=== PATIENT | female | born 1985 | race Caucasian/White ===

== ENCOUNTER 2017-08-03 17:27 | Emergency (ER) | payer OTHER ==
[2017-08-03] MEDS ORDERED: methylPREDNISolone SOD SUCCI 125 MG/2 ML VIAL IV ONE (17:54)
[2017-08-03] MEDS ORDERED: FAMOTIDINE 20 MG/2 ML VIAL IV STA (17:54)
--- NOTE | 2017-08-03 18:16 | XR ---
EXAMINATION TYPE: XR chest 2V DATE OF EXAM: 08/03/2017 COMPARISON: NONE HISTORY: Chest pain after bee sting injury today. TECHNIQUE: Frontal and lateral views of the chest are obtained. FINDINGS: Lateral view is slightly suboptimal secondary to patient's large body habitus. Somewhat low lung volumes noted. There is no focal air space opacity, pleural effusion, or pneumothorax seen. T he cardiac silhouette size is within normal limits. The osseous structures are intact. IMPRESSION: No acute cardiopulmonary process.
--- NOTE | 2017-08-03 18:36 | ED ---
Allergic Reaction HPI - General Chief complaint: Skin/Abscess/Foreign Body Stated complaint: Bee Sting Time Seen by Provider: 08/03/17 17:29 Source: patient, EMS Mode of arrival: EMS Limitations: no limitations - History of Present Illness Initial Comments: Pt presents following an ALLERGIC reaction to bee sting. Patient states earlier this morning she was driving with arm out window, felt a bee sting her on left anterior forearm. States she initially had some localized swelling and itching and redness in the area. States she's had these reactions to bees since she was a child. States later in the afternoon she began feeling short of breath, felt like she could not swallow, had itching and pain in both arms. States she felt very anxious. She called EMS, who brought patient to the ER, was given Benadryl prior to arrival, patient states her symptoms are improving since receiving Benadryl. Patient complains only of localized swelling redness and itching of the bee sting site at this time. Currently denies shortness of breath, throat swelling, voice changes, trouble swallowing, shortness of breath or pain in the chest. Patient states she takes no medications daily, has no past medical history. Patient denies history of coronary artery disease, any heart disease, hypertension, high cholesterol, diabetes. Patient does admit to smoking less than one pack per day. He denies ALLERGIES to any medications, foods, environmental ALLERGIES other than localized reactions to bee stings. MD Complaint: allergic reaction - Related Data Previous Rx's Medication Instructions Recorded Amoxic-Pot Clav 875-125Mg 1 tab PO Q12HR #20 tablet 07/26/17 [Augmentin 875-125] Ranitidine HCl [Zantac] 150 mg PO BID #8 tab 08/03/17 diphenhydrAMINE [Benadryl] 50 mg PO TID PRN #10 capsule 08/03/17 predniSONE 50 mg PO DAILY #4 tablet 08/03/17 Allergies Allergy/AdvReac Type Severity Reaction Status Date / Time bee venom protein (honey bee) Allergy Rash/Swelli Verified 08/03/17 17:52 ng Review of Systems ROS Statement: Those systems with pertinent positive or pertinent negative responses have been documented in the HPI. ROS Other: All systems not noted in ROS Statement are negative. Constitutional: Denies: fever, chills, weakness Eyes: Denies: eye pain, eye discharge, vision change ENT: Denies: ear pain, throat pain, congestion Respiratory: Denies: cough, dyspnea, wheezes, stridor Cardiovascular: Denies: chest pain, palpitations, syncope Endocrine: Denies: fatigue Gastrointestinal: Denies: abdominal pain, nausea, vomiting, diarrhea, constipation Genitourinary: Denies: urgency, dysuria Musculoskeletal: Denies: back pain Skin: Reports: rash, lesions, change in color, pruritus Neurological: Denies: headache, weakness, numbness, confusion Psychiatric: Reports: anxiety Past Medical History Past Medical History: Diabetes Mellitus Additional Past Medical History / Comment(s): Obstetric history: She has had 2 previous vaginal deliveries and 1 spontaneous . She has had care with me since 10 weeks. O+, abs neg, Rub Imm, RPR NR, Hep B neg ,HIV NR, toxo neg. She does have gestational diabetes A1-controlled well with diet. GBS neg. History of Any Multi-Drug Resistant Organisms: None Reported Past Surgical History: Cholecystectomy Additional Past Surgical History / Comment(s): cyst removed off back, D&C Past Anesthesia/Blood Transfusion Reactions: No Reported Reaction Past Psychological History: No Psychological Hx Reported Past Alcohol Use History: None Reported - Past Family History Father Family Medical History: Hypertension General Exam - General Exam Comments Initial Comments: Pt sitting up on bed. No acute distress. Conversing normally. Calm, pleasant , smiling, making jokes. Well-appearing. Limitations: no limitations General appearance: alert, in no apparent distress Head exam: Present: atraumatic, normocephalic Eye exam: Present: normal appearance, PERRL, EOMI. Absent: conjunctival injection Pupils: Present: normal accommodation ENT exam: Present: normal exam, normal oropharynx, mucous membranes moist, normal external ear exam, other (Pharynx appears clear, no edema, no swelling, no redness.) Neck exam: Present: normal inspection, full ROM, other (No stridor). Absent: tenderness Respiratory exam: Present: normal lung sounds bilaterally. Absent: respiratory distress, wheezes, rales, rhonchi, stridor, accessory muscle use, decreased breath sounds, prolonged expiratory Cardiovascular Exam: Present: regular rate, normal rhythm GI/Abdominal exam: Present: soft. Absent: distended, tenderness, guarding, rebound Extremities exam: Present: full ROM, normal capillary refill. Absent: tenderness, joint swelling Neurological exam: Present: alert, oriented X3. Absent: altered Psychiatric exam: Present: normal affect, normal mood Skin exam: Present: warm, dry, intact, erythema, urticaria, other (Has approximately 3 cm x 6 cm erythematous wheal on left anterior forearm.). Absent : vesicles, pallor Course Vital Signs 08/03/17 17:28 Temperature 99.1 F Pulse Rate 112 H Respiratory 16 Rate Blood Pressure 153/84 O2 Sat by Pulse 99 Oximetry Medical Decision Making - Medical Decision Making Patient given Benadryl by EMS prior to arrival with improvement of symptoms. Will give Pepcid, Solu-Medrol. EKG normal sinus rhythm, heart rate 81, no ST or T-wave changes. Chest x-ray negative for acute process. Patient monitored in the ER, remained asymptomatic other than mild edema and redness localized to sting site. Patient states shortness of breath and other associated symptoms have resolved. Patient feels comfortable going home at this time. Patient given a prescription for Zantac, prednisone, Benadryl. Patient to follow up with primary care physician. Return to ED if there are worsening symptoms. Patient understands and agrees. Disposition Clinical Impression: Allergic reaction to bee sting Disposition: HOME SELF-CARE Condition: Good Instructions: General Allergic Reaction (ED) Prescriptions: diphenhydrAMINE [Benadryl] 50 mg PO TID PRN #10 capsule PRN Reason: Allergic Reaction predniSONE 50 mg PO DAILY #4 tablet Ranitidine HCl [Zantac] 150 mg PO BID #8 tab Referrals: Juan Pablo Braxton DO [Primary Care Provider] - 1-2 days
[2017-08-03 18:58] VITALS: BP 139/78; PULSE 98; RESP 13; TEMP 98.5
== END 2017-08-03 19:02 | disposition home or self-care (01) ==
LOC: EC 17:27
DX: T63.441A Toxic effect of venom of bees, accidental (unintentional), initial encounter (principal); R06.02 Shortness of breath; F17.200 Nicotine dependence, unspecified, uncomplicated; Z91.030 Bee allergy status
CPT/HCPCS: 99284 ×2; 96374 ×2; 96375 ×2; 93005; 71020; J2930

== ENCOUNTER 2020-07-03 14:01 | Emergency (ER) | payer OTHER ==
[2020-07-03 14:15] VITALS: RESP 18
[2020-07-03] MEDS ORDERED: SODIUM CHLORIDE 0.9% 1,000 ML IV STA (14:20)
[2020-07-03] MEDS ORDERED: SODIUM CHLORIDE 0.9% 500 ML 500 ML IV STA (14:20)
[2020-07-03] MEDS ORDERED: MORPHINE SULFATE 2 MG/ML SYRINGE IVP STA (14:50)
[2020-07-03 14:53] LABS: Basophils # (A) 0.1 k/uL (0-0.2); Basophils % (A) 1 %; Eosinophils # (A) 0.2 k/uL (0-0.7); Eosinophils % (A) 3 %; HCT 40.9 % (34.0-46.0); HGB 13.9 gm/dL (11.4-16.0); Lymphocytes # (A) 1.7 k/uL (1.0-4.8); Lymphocytes % (A) 21 %; MCH 28.4 pg (25.0-35.0); MCHC 33.9 g/dL (31.0-37.0); MCV 83.8 fL (80.0-100.0); Mean Platelet Volume 7.1; Monocytes # (A) 0.3 k/uL (0-1.0); Monocytes % (A) 3 %; Neutrophils # (A) 5.7 k/uL (1.3-7.7); Neutrophils % (A) 70 %; Platelet Count 222 k/uL (150-450); RBC 4.89 m/uL (3.80-5.40); RDW 13.1 % (11.5-15.5); WBC 8.1 k/uL (3.8-10.6)
[2020-07-03 14:54] LABS: Appearance,Urine Clear (Clear); Bilirubin,Urine Negative (Negative); Blood,Urine Trace (Negative); Color,Urine Yellow; Glucose,Urine (UA) Negative (Negative); Ketones,Urine Negative (Negative); Leukocyte Esterase,Urine Negative (Negative); Mucus,Urine Rare /hpf; Nitrite,Urine Negative (Negative); PH, Urine 5.5 (5.0-8.0); Protein,Urine Negative (Negative); RBC,Urine 1 /hpf (0-5); Specific Gravity,Urine 1.009 (1.001-1.035); Squamous Epithelial Cell,Urine 1 /hpf (0-4); Urobilinogen,Urine <2.0 mg/dL (<2.0); WBC,Urine 1 /hpf (0-5)
[2020-07-03] MEDS ORDERED: ONDANSETRON 4 MG/2 ML VIAL IVP STA (15:00)
[2020-07-03 15:02] LABS: ALT 43 U/L (4-34); AST 32 U/L (14-36); African American GFR (CKD) >90 (>60 ml/min/1.73 sqM); Albumin 4.5 g/dL (3.5-5.0); Alkaline Phosphatase 91 U/L (38-126); Anion Gap 7 mmol/L; Blood Urea Nitrogen 9 mg/dL (7-17); Calcium 9.3 mg/dL (8.4-10.2); Carbon Dioxide 25 mmol/L (22-30); Chloride 105 mmol/L (98-107); Glucose 155 mg/dL (74-99); Non-African American GFR(CKD) >90 (>60 ml/min/1.73 sqM); Potassium 3.7 mmol/L (3.5-5.1); Sodium 137 mmol/L (137-145); Total Bilirubin 0.4 mg/dL (0.2-1.3)
--- NOTE | 2020-07-03 15:44 | US ---
EXAMINATION TYPE: US abdomen limited DATE OF EXAM: 07/03/2020 COMPARISON: NONE CLINICAL HISTORY: epigastric pain. EXAM MEASUREMENTS: Liver Length: 15.7 cm Gallbladder Wall: Surgically absent CBD: 0.5 cm Right Kidney: 11.9 x 4.7 x 4.5 cm Pancreas: wnl Liver: There is no evident mass Gallbladder: Surgically absent Evidence for sonographic Todd's sign: No CBD: wnl Right Kidney: prominent renal pelvis IMPRESSION: Postcholecystectomy change, suspect extrarenal pelvis, limited exam.
[2020-07-03 15:49] VITALS: BP 143/93; PULSE 87
--- NOTE | 2020-07-03 15:58 | ED ---
Nausea/Vomiting/Diarrhea HPI - General Chief complaint: Nausea/Vomiting/Diarrhea Stated complaint: Abd Pain, Nausea Time Seen by Provider: 07/03/20 14:20 Source: patient Mode of arrival: wheelchair Limitations: no limitations - History of Present Illness Initial comments: 34-year-old male presenting today for chief complaint of 10 days of diarrhea. Patient denies any recent trauma or fevers to stitches had 10 days of diarrhea she denies bloody or black stools. Patient denies any presyncope. She states she has some nausea at times and cramping of the abdomen including currently in the epigastric region she was told she had any pain to come to the hospital for further evaluation patient has outpatient orders for basic studies, amylase lipase and an ultrasound of the upper abdomen. Patient denies vomiting, chest pain or SOB. patient has no additional complaints. Upon arrival patient appears well there is no signs of acute distress. - Related Data Previous Rx's Medication Instructions Recorded Amoxic-Pot Clav 875-125Mg 1 tab PO Q12HR #20 tablet 07/26/17 [Augmentin 875-125] Ranitidine HCl [Zantac] 150 mg PO BID #8 tab 08/03/17 diphenhydrAMINE [Benadryl] 50 mg PO TID PRN #10 capsule 08/03/17 predniSONE 50 mg PO DAILY #4 tablet 08/03/17 Allergies Allergy/AdvReac Type Severity Reaction Status Date / Time bee venom protein (honey bee) Allergy Rash/Swelli Verified 07/03/20 14:15 ng Review of Systems ROS Statement: Those systems with pertinent positive or pertinent negative responses have been documented in the HPI. ROS Other: All systems not noted in ROS Statement are negative. Past Medical History Past Medical History: Diabetes Mellitus Additional Past Medical History / Comment(s): Obstetric history: She has had 2 previous vaginal deliveries and 1 spontaneous . She has had care with hi since 10 weeks. O+, abs neg, Rub Imm, RPR NR, Hep B neg ,HIV NR, toxo neg. She does have gestational diabetes A1-controlled well with diet. GBS neg. History of Any Multi-Drug Resistant Organisms: None Reported Past Surgical History: Cholecystectomy Additional Past Surgical History / Comment(s): cyst removed off back, D&C Past Anesthesia/Blood Transfusion Reactions: No Reported Reaction Past Psychological History: No Psychological Hx Reported Past Alcohol Use History: None Reported - Past Family History Father Family Medical History: Hypertension General Exam - General Exam Comments Initial Comments: General: The patient is awake and alert, in no distress, and does not appear acutely ill. Eye: +3 mmm pupils are equal, round and reactive to light, extra-ocular movements are intact. No nystagmus. There is normal conjunctiva bilaterally. No signs of icterus. Ears, nose, mouth and throat: There are moist mucous membranes and no oral lesions. Neck: The neck is supple, there is no tenderness or JVD. Cardiovascular: There is a regular rate and rhythm. No murmur, rub or gallop is appreciated. Respiratory: Lungs are clear to auscultation, respirations are non-labored, b reath sounds are equal. No wheezes, stridor, rales, or rhonchi. Gastrointestinal: Soft, non-distended, I can deeply palpation epigastric pain reproducing what appears to be mild abdominal pain, abdomen is without masses or organomegaly noted. There is no rebound or guarding present. Musculoskeletal: Normal ROM, no tenderness. Strength 5/5. Sensation intact. Radial pulses equal bilaterally 2+. Neurological: A&O x 3. CN II-XII intact grossly, There are no obvious motor or sensory deficits. Coordination appears grossly intact. Speech is normal. Skin: Skin is warm and dry and no rashes or lesions are noted. Psychiatric: Cooperative, appropriate mood & affect, normal judgment. Limitations: no limitations Course Vital Signs 07/03/20 07/03/20 07/03/20 14:11 15:48 16:15 Temperature 98.1 F 97.8 F Pulse Rate 104 H 87 Respiratory 18 18 Rate Blood Pressure 135/92 143/93 O2 Sat by Pulse 98 99 Oximetry Medical Decision Making - Medical Decision Making US (-). Previous júnior. Patient pain appears mild. Labs stable. Cannot provide stool sample here, wants to do it outpatient has existing orders from PCP. P atient pain controlled, she was givne IVF appears well nontoxic, discharged wt PCP f/u. patient agreeable to care plan and discharge. - Lab Data Result diagrams: 07/03/20 14:36 07/03/20 14:36 Lab Results 07/03/20 07/03/20 07/03/20 Range/Units 14:36 14:36 14:36 WBC 8.1 (3.8-10.6) k/uL RBC 4.89 (3.80-5.40) m/uL Hgb 13.9 (11.4-16.0) gm/dL Hct 40.9 (34.0-46.0) % MCV 83.8 (80.0-100.0) fL MCH 28.4 (25.0-35.0) pg MCHC 33.9 (31.0-37.0) g/dL RDW 13.1 (11.5-15.5) % Plt Count 222 (150-450) k/uL Neutrophils % 70 % Lymphocytes % 21 % Monocytes % 3 % Eosinophils % 3 % Basophils % 1 % Neutrophils # 5.7 (1.3-7.7) k/uL Lymphocytes # 1.7 (1.0-4.8) k/uL Monocytes # 0.3 (0-1.0) k/uL Eosinophils # 0.2 (0-0.7) k/uL Basophils # 0.1 (0-0.2) k/uL Sodium 137 (137-145) mmol/L Potassium 3.7 (3.5-5.1) mmol/L Chloride 105 (98-107) mmol/L Carbon Dioxide 25 (22-30) mmol/L Anion Gap 7 mmol/L BUN 9 (7-17) mg/dL Creatinine 0.60 (0.52-1.04) mg/dL Est GFR (CKD-EPI)AfAm >90 (>60 ml/min/1.73 sqM) Est GFR (CKD-EPI)NonAf >90 (>60 ml/min/1.73 sqM) Glucose 155 H (74-99) mg/dL Calcium 9.3 (8.4-10.2) mg/dL Total Bilirubin 0.4 (0.2-1.3) mg/dL AST 32 (14-36) U/L ALT 43 H (4-34) U/L Alkaline Phosphatase 91 (38-126) U/L Total Protein 7.0 (6.3-8.2) g/dL Albumin 4.5 (3.5-5.0) g/dL Lipase 81 (23-300) U/L Urine Color Yellow Urine Appearance Clear (Clear) Urine pH 5.5 (5.0-8.0) Ur Specific Davison 1.009 (1.001-1.035) Urine Protein Negative (Negative) Urine Glucose (UA) Negative (Negative) Urine Ketones Negative (Negative) Urine Blood Trace H (Negative) Urine Nitrite Negative (Negative) Urine Bilirubin Negative (Negative) Urine Urobilinogen <2.0 (<2.0) mg/dL Ur Leukocyte Esterase Negative (Negative) Urine RBC 1 (0-5) /hpf Urine WBC 1 (0-5) /hpf Ur Squamous Epith Cells 1 (0-4) /hpf Urine Mucus Rare H (None) /hpf Disposition Clinical Impression: Diarrhea, Abdominal pain Disposition: HOME SELF-CARE Condition: Good Instructions (If sedation given, give patient instructions): Acute Diarrhea (ED), Abdominal Pain (ED) Additional Instructions: Please use medication as discussed. Please follow-up with family doctor in the next 2 days. Please return to emergency room if the symptoms increase or worsen or for any other concerns. Is patient prescribed a controlled substance at d/c from ED?: No Referrals: Candis Moser DO [Primary Care Provider] - 1-2 days Time of Disposition: 15:57
[2020-07-03 16:16] VITALS: TEMP 97.8
== END 2020-07-03 16:16 | disposition home or self-care (01) ==
LOC: EC 14:01
DX: R19.7 Diarrhea, unspecified (principal); R10.13 Epigastric pain; Z91.030 Bee allergy status; Z90.49 Acquired absence of other specified parts of digestive tract
CPT/HCPCS: 36415; 80053; 83690; 85025; 81001; 76705; 96374; 96375; 96361; 99284; J2405; J2270

== ENCOUNTER 2021-04-07 07:29 | Observation (INO) | payer OTHER ==
[2021-04-07] MEDS ORDERED: ONDANSETRON 4 MG/2 ML VIAL IVP STA (07:48)
[2021-04-07] MEDS ORDERED: MORPHINE SULFATE 4 MG/ML SYRINGE IV STA (07:48)
[2021-04-07] MEDS ORDERED: SODIUM CHLORIDE 0.9% 1,000 ML IV STA (07:48)
--- NOTE | 2021-04-07 07:50 | ED ---
General Adult HPI - General Chief complaint: Abdominal Pain Stated complaint: abd pain, nausea Time Seen by Provider: 04/07/21 07:39 Source: patient Mode of arrival: wheelchair Limitations: no limitations - History of Present Illness Initial comments: Dictation was produced using [employer] dictation software. please excuse any grammatical, word or spelling errors. Chief Complaint: 35-year-old female presents to the emergency department for lower abdominal pain. History of Present Illness: 35-year-old female she will go this morning with severe lower abdominal pain. Patient has history of cholecystectomy. She says appendix. She does complain of constitutional symptoms but denies any fevers patient states she just feels cold. Patient never had symptoms like this in the past. She has history of bilateral tubal ligation. No other abdominal surgeries. She does complain of nausea vomiting. Denies any diarrhea. The ROS documented in this emergency department record has been reviewed and confirmed by me. Those systems with pertinent positive or negative responses have been documented in the HPI. All other systems are other negative and/or noncontributory. PHYSICAL EXAM: General Impression: Alert and oriented x3, severe distress secondary to pain HEENT: Normocephalic atraumatic, extra-ocular movements intact, pupils equal and reactive to light bilaterally, mucous membranes moist. Cardiovascular: Heart regular rate and rhythm Chest: Able to complete full sentences, no retractions, no tachypnea Abdomen: abdomen soft, tenderness to palpation in the periumbilical area. There is not obvious rebound tenderness., non-distended, no organomegaly Musculoskeletal: Pulses present and equal in all extremities, no peripheral edema Motor: no focal deficits noted Neurological: CN II-XII grossly intact, no focal motor or sensory deficits noted Skin: Intact with no visualized rashes Psych: Normal affect and mood ED course: 35-year-old female presents with severe periumbilical abdominal pain. Signs upon arrival shows heart rate of 116, rest of vital signs within acceptable limits. Patient is in acute distress secondary to pain. There is clinical suspicion for surgical abdomen. Labs and CT imaging ordered. Patient has history of bilateral tubal ligation. Laboratory evaluation showed leukocytosis of 14.6, metabolic panel is unremarkable. Computed tomography scan of the abdomen and pelvis shows acute a ppendicitis without complications. Patient started on Zosyn. Patient had a reaction to the contrast during the CT. She had symptoms of some dryness in the mouth and flushing of the skin. Patient given Solu-Medrol and diphenhydramine. Case discussed with Dr. Valero was went except patient's care for surgical intervention and admission. - Related Data Home Medications Medication Instructions Recorded Confirmed Phentermine HCl 37.5 mg PO AC-BRKFST 04/07/21 04/07/21 Allergies Allergy/AdvReac Type Severity Reaction Status Date / Time bee venom protein (honey bee) Allergy Rash/Swelli Verified 04/07/21 08:50 ng Iodinated Contrast Media Allergy rash/swelli Verified 04/07/21 08:50 ng Review of Systems ROS Statement: Those systems with pertinent positive or pertinent negative responses have been documented in the HPI. ROS Other: All systems not noted in ROS Statement are negative. Past Medical History Past Medical History: Diabetes Mellitus Additional Past Medical History / Comment(s): Obstetric history: She has had 2 previous vaginal deliveries and 1 spontaneous . She has had care with de since 10 weeks. O+, abs neg, Rub Imm, RPR NR, Hep B neg ,HIV NR, toxo neg. She does have gestational diabetes A1-controlled well with diet. GBS neg. History of Any Multi-Drug Resistant Organisms: None Reported Past Surgical History: Cholecystectomy Additional Past Surgical History / Comment(s): cyst removed off back, D&C Past Anesthesia/Blood Transfusion Reactions: No Reported Reaction Past Psychological History: No Psychological Hx Reported Smoking Status: Current every day smoker Past Alcohol Use History: Occasional Past Drug Use History: None Reported - Past Family History Father Family Medical History: Hypertension General Exam Limitations: no limitations Course Vital Signs 04/07/21 04/07/21 07:32 08:32 Temperature 97.8 F Pulse Rate 116 H 104 H Respiratory 18 22 Rate Blood Pressure 154/89 122/93 O2 Sat by Pulse 100 100 Oximetry Medical Decision Making - Lab Data Result diagrams: 04/07/21 08:14 04/07/21 08:14 Lab Results 04/07/21 04/07/21 Range/Units 08:14 08:14 WBC 14.6 H (3.8-10.6) k/uL RBC 5.12 (3.80-5.40) m/uL Hgb 14.7 (11.4-16.0) gm/dL Hct 42.3 (34.0-46.0) % MCV 82.6 (80.0-100.0) fL MCH 28.8 (25.0-35.0) pg MCHC 34.8 (31.0-37.0) g/dL RDW 12.7 (11.5-15.5) % Plt Count 284 (150-450) k/uL MPV 7.1 Neutrophils % 85 % Lymphocytes % 10 % Monocytes % 3 % Eosinophils % 1 % Basophils % 0 % Neutrophils # 12.4 H (1.3-7.7) k/uL Lymphocytes # 1.5 (1.0-4.8) k/uL Monocytes # 0.4 (0-1.0) k/uL Eosinophils # 0.2 (0-0.7) k/uL Basophils # 0.1 (0-0.2) k/uL Sodium 138 (137-145) mmol/L Potassium 4.1 (3.5-5.1) mmol/L Chloride 106 (98-107) mmol/L Carbon Dioxide 20 L (22-30) mmol/L Anion Gap 12 mmol/L BUN 18 H (7-17) mg/dL Creatinine 0.81 (0.52-1.04) mg/dL Est GFR (CKD-EPI)AfAm >90 (>60 ml/min/1.73 sqM) Est GFR (CKD-EPI)NonAf >90 (>60 ml/min/1.73 sqM) Glucose 124 H (74-99) mg/dL Calcium 10.0 (8.4-10.2) mg/dL Total Bilirubin 0.5 (0.2-1.3) mg/dL AST 20 (14-36) U/L ALT 20 (4-34) U/L Alkaline Phosphatase 104 (38-126) U/L Total Protein 7.2 (6.3-8.2) g/dL Albumin 4.6 (3.5-5.0) g/dL Lipase 77 (23-300) U/L Disposition Clinical Impression: Acute appendicitis Disposition: ADMITTED IP TO THIS HOSP Condition: Fair Referrals: Candis oMser DO [Primary Care Provider] - 1-2 days
[2021-04-07 08:23] LABS: Basophils # (A) 0.1 k/uL (0-0.2); Basophils % (A) 0 %; Eosinophils # (A) 0.2 k/uL (0-0.7); Eosinophils % (A) 1 %; HCT 42.3 % (34.0-46.0); HGB 14.7 gm/dL (11.4-16.0); Lymphocytes # (A) 1.5 k/uL (1.0-4.8); Lymphocytes % (A) 10 %; MCH 28.8 pg (25.0-35.0); MCHC 34.8 g/dL (31.0-37.0); MCV 82.6 fL (80.0-100.0); Mean Platelet Volume 7.1; Monocytes # (A) 0.4 k/uL (0-1.0); Monocytes % (A) 3 %; Neutrophils # (A) 12.4 k/uL (1.3-7.7); Neutrophils % (A) 85 %; Platelet Count 284 k/uL (150-450); RBC 5.12 m/uL (3.80-5.40); RDW 12.7 % (11.5-15.5); WBC 14.6 k/uL (3.8-10.6)
[2021-04-07] MEDS ORDERED: diphenhydrAMINE 50 MG/ML 1 ML VIAL IVP STA (08:27)
[2021-04-07 08:33] LABS: ALT 20 U/L (4-34); AST 20 U/L (14-36); African American GFR (CKD) >90 (>60 ml/min/1.73 sqM); Albumin 4.6 g/dL (3.5-5.0); Alkaline Phosphatase 104 U/L (38-126); Anion Gap 12 mmol/L; Blood Urea Nitrogen 18 mg/dL (7-17); Carbon Dioxide 20 mmol/L (22-30); Chloride 106 mmol/L (98-107); Glucose 124 mg/dL (74-99); Lipase 77 U/L (23-300); Non-African American GFR(CKD) >90 (>60 ml/min/1.73 sqM); Potassium 4.1 mmol/L (3.5-5.1); Sodium 138 mmol/L (137-145); Total Bilirubin 0.5 mg/dL (0.2-1.3); Total Protein 7.2 g/dL (6.3-8.2)
[2021-04-07] MEDS ORDERED: PIPERACILLIN-TAZOBACTAM 3.375 GM in SODIUM CHLORIDE 0.9% 100 ML IVPB STA (09:06)
[2021-04-07] MEDS ORDERED: methylPREDNISolone SOD SUCCI 125 MG/2 ML VIAL IV STA (09:06)
[2021-04-07] MEDS ORDERED: ACETAMINOPHEN TAB 325 MG TAB PO PRN (09:08)
[2021-04-07] MEDS ORDERED: NALOXONE 0.4 MG/ML 1 ML VIAL IV PRN (09:08)
--- NOTE | 2021-04-07 09:08 | CT ---
EXAMINATION TYPE: CT abdomen pelvis w con DATE OF EXAM: 04/07/2021 HISTORY: Suspect acute appendicitis, epigastric pain CT DLP: 1266.6mGycm Automated Exposure Control for Dose Reduction was Utilized. CONTRAST: CT scan of the abdomen and pelvis is performed without oral but with IV Contrast, patient injected wi th 100 ml mL of Isovue 300. COMPARISON: Ultrasound abdomen Limited July 03, 2020 FINDINGS: LUNG BASES: No significant abnormality is appreciated. LIVER/GB: Gallbladder is surgically absent. PANCREAS: No significant abnormality is seen. SPLEEN: No significant abnormality is seen. ADRENALS: No significant abnormality is seen. KIDNEYS: No significant abnormality is seen. BOWEL: Mild to moderately distended appendix up to 11 mm coronal image 51 with mild ill-defined fluid and fat stranding. Gradual tapering towards the tip. Probable small subcentimeter appendicolith anni nal image 49 near base. No free air. No well-formed fluid collection or abscess. No suspicious small or large bowel dilatation. Terminal ileum appears within normal limits. UTERUS/ADNEXA: Retroverted uterus. LYMPH NODES: No greater than 1cm abdominal or pelvic lymph nodes are appreciated. OSSEOUS STRUCTURES: Transitional type vertebra lumbosacral junction. OTHER: No significant additional abnormality is seen. IMPRESSION: CT findings consistent with an uncomplicated mild/moderate acute appendicitis as detailed above. Critical results communicated to covering ER physician via telephone at time of dictation.
[2021-04-07] MEDS ORDERED: SODIUM CHLORIDE 0.9% 1,000 ML IV SCH (09:15)
[2021-04-07 09:47] LABS: Appearance,Urine Clear (Clear); Bacteria,Urine Rare /hpf; Bilirubin,Urine Negative (Negative); Blood,Urine Large (Negative); Color,Urine Yellow; Glucose,Urine (UA) Negative (Negative); Ketones,Urine 2+ (Negative); Leukocyte Esterase,Urine Trace (Negative); Mucus,Urine Rare /hpf; Nitrite,Urine Negative (Negative); PH, Urine 6.5 (5.0-8.0); Protein,Urine Trace (Negative); RBC,Urine 11 /hpf (0-5); Squamous Epithelial Cell,Urine 3 /hpf (0-4); Urobilinogen,Urine <2.0 mg/dL (<2.0); WBC,Urine 9 /hpf (0-5)
[2021-04-07] MEDS ORDERED: METOCLOPRAMIDE 5 MG/ML 2 ML VIAL IVP STA (09:49)
[2021-04-07 09:55] LABS: Specific Gravity,Urine >1.050 (1.001-1.035)
[2021-04-07] MEDS ORDERED: MORPHINE SULFATE 4 MG/ML SYRINGE IVP PRN (10:33)
[2021-04-07] MEDS ORDERED: IV FLUID CONTINUATION 1,000 ML IV ONE (11:44)
[2021-04-07] MEDS ORDERED: ONDANSETRON 4 MG/2 ML VIAL IVP PRN (11:53)
[2021-04-07] MEDS ORDERED: ONDANSETRON 4 MG/2 ML VIAL IVP ONE (11:56)
[2021-04-07] MEDS ORDERED: DEXAMETHASONE SOD PHOSPHATE 4 MG/ML 1 ML VIAL IVP ONE (11:57)
--- NOTE | 2021-04-07 11:58 | P.GSHP ---
History of Present Illness H&P Date: 04/07/21 CHIEF COMPLAINT: Right lower quadrant abdominal pain HISTORY OF PRESENT ILLNESS: This is a 35-year-old female with past surgical history of laparoscopic cholecystectomy. She presents to the emergency room with complaint of right lower quadrant abdominal pain that was sharp and severe. They pain woke her up around 4 AM this morning. She's also complaining of nausea. No vomiting. She had a computed tomography scan of the abdomen and pelvis with IV contrast showing an uncomplicated mid to moderate acute appendicitis. Patient also had been tachycardic with leukocytosis. She was given IV antibiotics in the ER. She had an ALLERGIC reaction to the contrast from the CAT scan. She was given Solu-Medrol and Benadryl for the ALLERGIC reaction. She complains chills. Denies any fever. PAST MEDICAL HISTORY: See list. PAST SURGICAL HISTORY: See list. MEDICATIONS: See list. ALLERGIES: See list. SOCIAL HISTORY: No illicit drug use. REVIEW OF SYSTEMS: CONSTITUTIONAL: Denies fever or chills. HEENT: Denies blurred vision, vision changes, or eye pain. Denies hemoptysis CARDIOVASCULAR: Denies chest pain or pressure. RESPIRATORY: No shortness of breath. GASTROINTESTINAL: See HPI for pertinent findings HEMATOLOGIC: Denies bleeding disorders. GENITOURINARY: Denies any blood in urine or increased urinary frequency. SKIN: Denies pruitis. Denies rash. PHYSICAL EXAM: VITAL SIGNS: Reviewed GENERAL: Well-developed in no acute distress. HEENT: No sclera icterus. Extraocular movements grossly intact. Moist buccal mucosa. Head is atraumatic, normocephalic. No nasal drainage. ABDOMEN: Soft. Nondistended. Right lower quadrant tenderness NEUROLOGIC: Alert and oriented. Cranial nerves II through XII grossly intact. LABORATORY DATA: WBC 14.6 hemoglobin 14.7 platelets 284 creatinine 0.81 IMAGING: computed tomography scan of the abdomen and pelvis with IV contrast showing an uncomplicated mid to moderate acute appendicitis. ASSESSMENT: 1. Acute appendicitis PLAN: -Patient scheduled for laparoscopic appendectomy today with Dr. taylor -Keep patient nothing by mouth -Continue IV fluids -Continue pain medication as needed -Continue antiemetics Physician Finished Cloth Examiner note has been reviewed by physician. Signing provider agrees with the documented findings, assessment, and plan of care. Past Medical History Past Medical History: Diabetes Mellitus Additional Past Medical History / Comment(s): Obstetric history: She has had 2 previous vaginal deliveries and 1 spontaneous . O+, abs neg, Rub Imm, RPR NR, Hep B neg ,HIV NR, toxo neg. She does have gestational diabetes A1-controlled well with diet. GBS neg. History of Any Multi-Drug Resistant Organisms: None Reported Past Surgical History: Cholecystectomy Additional Past Surgical History / Comment(s): cyst removed off back, D&C Past Anesthesia/Blood Transfusion Reactions: No Reported Reaction Past Psychological History: No Psychological Hx Reported Smoking Status: Current every day smoker Past Alcohol Use History: Occasional Additional Past Alcohol Use History / Comment(s): less than a pack a day smoker. Past Drug Use History: None Reported - Past Family History Mother Family Medical History: No Reported History Father Family Medical History: Hypertension Medications and Allergies Home Medications Medication Instructions Recorded Confirmed Type Phentermine HCl 37.5 mg PO AC-BRKFST 04/07/21 04/07/21 History Allergies Allergy/AdvReac Type Severity Reaction Status Date / Time bee venom protein (honey bee) Allergy Rash/Swelli Verified 04/07/21 08:50 ng Iodinated Contrast Media Allergy rash/swelli Verified 04/07/21 08:50 ng Surgical - Exam Vital Signs Temp Pulse Resp BP Pulse Ox 97.8 F 116 H 18 154/89 100 04/07/21 07:32 04/07/21 07:32 04/07/21 07:32 04/07/21 07:32 04/07/21 07:32 Results - Labs 04/07/21 08:14 04/07/21 08:14 Abnormal Lab Results - Last 24 Hours (Table) 04/07/21 04/07/21 04/07/21 Range/Units 08:14 08:14 09:19 WBC 14.6 H (3.8-10.6) k/uL Neutrophils # 12.4 H (1.3-7.7) k/uL Carbon Dioxide 20 L (22-30) mmol/L BUN 18 H (7-17) mg/dL Glucose 124 H (74-99) mg/dL Ur Specific Maribel >1.050 H (1.001-1.035) Urine Protein Trace H (Negative) Urine Ketones 2+ H (Negative) Urine Blood Large H (Negative) Ur Leukocyte Esterase Trace H (Negative) Urine RBC 11 H (0-5) /hpf Urine WBC 9 H (0-5) /hpf Urine Bacteria Rare H (None) /hpf Urine Mucus Rare H (None) /hpf Diabetes panel 04/07/21 Range/Units 08:14 Sodium 138 (137-145) mmol/L Potassium 4.1 (3.5-5.1) mmol/L Chloride 106 (98-107) mmol/L Carbon Dioxide 20 L (22-30) mmol/L BUN 18 H (7-17) mg/dL Creatinine 0.81 (0.52-1.04) mg/dL Glucose 124 H (74-99) mg/dL Calcium 10.0 (8.4-10.2) mg/dL AST 20 (14-36) U/L ALT 20 (4-34) U/L Alkaline Phosphatase 104 (38-126) U/L Total Protein 7.2 (6.3-8.2) g/dL Albumin 4.6 (3.5-5.0) g/dL Calcium panel 04/07/21 Range/Units 08:14 Calcium 10.0 (8.4-10.2) mg/dL Albumin 4.6 (3.5-5.0) g/dL Pituitary panel 04/07/21 Range/Units 08:14 Sodium 138 (137-145) mmol/L Potassium 4.1 (3.5-5.1) mmol/L Chloride 106 (98-107) mmol/L Carbon Dioxide 20 L (22-30) mmol/L BUN 18 H (7-17) mg/dL Creatinine 0.81 (0.52-1.04) mg/dL Glucose 124 H (74-99) mg/dL Calcium 10.0 (8.4-10.2) mg/dL Adrenal panel 04/07/21 Range/Units 08:14 Sodium 138 (137-145) mmol/L Potassium 4.1 (3.5-5.1) mmol/L Chloride 106 (98-107) mmol/L Carbon Dioxide 20 L (22-30) mmol/L BUN 18 H (7-17) mg/dL Creatinine 0.81 (0.52-1.04) mg/dL Glucose 124 H (74-99) mg/dL Calcium 10.0 (8.4-10.2) mg/dL Total Bilirubin 0.5 (0.2-1.3) mg/dL AST 20 (14-36) U/L ALT 20 (4-34) U/L Alkaline Phosphatase 104 (38-126) U/L Total Protein 7.2 (6.3-8.2) g/dL Albumin 4.6 (3.5-5.0) g/dL
[2021-04-07] MEDS ORDERED: PANTOPRAZOLE 40 MG/10 ML VIAL IVP SCH (12:00)
[2021-04-07] MEDS ORDERED: HEPARIN SODIUM,PORCINE/PF 5,000 UNIT/0.5 ML SYRINGE SQ STA (12:21)
[2021-04-07] MEDS ORDERED: PROPOFOL 10 MG/ML 20 ML VIAL IV ONE (12:36)
[2021-04-07] MEDS ORDERED: fentaNYL (PF) 50 MCG/ML 2 ML AMP ONE (12:36)
[2021-04-07] MEDS ORDERED: MIDAZOLAM 2 MG/2 ML VIAL ONE (12:36)
[2021-04-07] MEDS ORDERED: SUCCINYLCHOLINE CHLORIDE 100 MG/5 ML SYR IV ONE (12:36)
[2021-04-07] MEDS ORDERED: ROCURONIUM 10 MG/ML (5 ML VIAL) IV ONE (12:36)
[2021-04-07] MEDS ORDERED: HYDROmorphone (PF) 1 MG/ML ONE (12:36)
[2021-04-07] MEDS ORDERED: LIDOCAINE 1% INJ 10MG/ML (20 ML MDV) ONE (12:36)
[2021-04-07] MEDS ORDERED: GLYCOPYRROLATE 0.2 MG/ML 2 ML VIAL ONE (12:36)
[2021-04-07] MEDS ORDERED: NEOSTIGMINE 1 MG/ML 10 ML VIAL ONE (12:36)
[2021-04-07] MEDS ORDERED: BUPIVACAINE (PF) 0.25% 30 ML VIAL SQ ONE (13:07)
[2021-04-07] MEDS ORDERED: HYDROmorphone 1 MG/ML 1 ML SYRINGE IVP PRN (13:18)
[2021-04-07] MEDS ORDERED: HYDROcodone/APAP 7.5-325MG 1 EACH TAB PO PRN (13:18)
--- NOTE | 2021-04-07 13:18 | P.OP ---
Date of Procedure: 04/07/21 Preoperative Diagnosis: acute appendicitis Postoperative Diagnosis: acute appendicitis Procedure(s) Performed: laparoscopic appendectomy Anesthesia: LIAT Surgeon: Francis Mckeon Estimated Blood Loss (ml): 5 Pathology: other (appendix) Condition: stable Disposition: PACU Description of Procedure: The patient's placed on the operating table in the supine position. The patient received general anesthesia. The abdomen was prepped and draped in the usual sterile fashion. The skin was anesthetized 1% local Xylocaine at the trocar sites. Using an 11 blade the skin was incised at the umbilicus. The umbilicus was grasped with a [place] clamp and then a Veress needle was placed into the peritoneal cavity. Position of the Veress needle was confirmed with positive drop test. After adequate insufflation a 5 mm trocar was placed into the peritoneal cavity. The abdomen was further insufflated. And then the laparoscope was placed in the peritoneal cavity. Next a 5 mm trocar was placed in the midline suprapubic position. And then a 10 mm trocar was placed in the midline epigastric position. The patient was rotated with the right side up and in Trendelenburg. The appendix was visualized. The appendix appeared to be inflamed. The appendix was grasped and then using the Harmonic scissors the mesoappendix was divided. A PDS Endoloop was then placed around the base of the appendix. And then the appendix was divided using Harmonic scissors. The appendix was placed into an Endo Catch and brought out through the 10 mm trocar site. The abdomen was irrigated. There is no bleeding seen. The trochars withdrawn. The skin was closed interrupted 3-0 Monocryl suture. Dermabond dressing was applied. Patient was sent to recovery room in stable condition.
[2021-04-07 16:07] VITALS: TEMP 98.1
[2021-04-07 16:42] VITALS: BP 128/83; PULSE 84; RESP 18
[2021-04-08] MEDS ORDERED: ENOXAPARIN 40 MG/0.4 ML SYRINGE SQ SCH (09:00)
== END 2021-04-07 17:53 ==
LOC: EC 07:29 → 6PED 09:15
PROVIDERS: ADMIT Surgery; ATTEND Surgery
DX: K35.80 Unspecified acute appendicitis (principal); F17.210 Nicotine dependence, cigarettes, uncomplicated; Z79.899 Other long term (current) drug therapy; Z98.51 Tubal ligation status; Z91.030 Bee allergy status; Z91.041 Radiographic dye allergy status; Z90.49 Acquired absence of other specified parts of digestive tract; Z86.32 Personal history of gestational diabetes; Z82.49 Family history of ischemic heart disease and other diseases of the circulatory system
CPT/HCPCS: 96374; 96375; 99285; 36415; 81025 ×2; 88304; 80053; 83690; 85025; 81001; 74177; 44970; G0378; J2543; J2250; J2270; J1200; J1100; J2710; J2765; J2930; J0690; J2405; J2001; J3010; J1170; J0330; J2704; Q9967